=== PATIENT | male | born 1980 | race Caucasian/White ===

== ENCOUNTER 2021-11-12 12:53 | Emergency (ER) | payer OTHER, SELFPAY ==
[2021-11-12] MEDS ORDERED: Lidocaine 1% (PF) 30 ML VIAL ONE (13:53)
[2021-11-12] MEDS ORDERED: Bacitracin 1 PK ONE (14:34)
== END 2021-11-12 14:52 | disposition home or self-care (01) ==
LOC: NAV ERS 12:53
DX: S61.411A Laceration without foreign body of right hand, initial encounter (principal); S60.311A Abrasion of right thumb, initial encounter; W31.2XXA Contact with powered woodworking and forming machines, initial encounter; Y92.89 Other specified places as the place of occurrence of the external cause; Y99.0 Civilian activity done for income or pay
CPT/HCPCS: 12042; J2001